=== PATIENT | female | born 1960 | race Caucasian/White ===

== ENCOUNTER 2018-11-18 11:31 | Inpatient (IN) ==
[2018-11-18] MEDS ORDERED: ASPIRIN PO ONE (12:35)
--- NOTE | 2018-11-18 12:39 | EKG Report ---
Test Performed on : 11/18/2018 11:41:02 AM Test Reason : CP Blood Pressure : / mmHG Vent. Rate : 074 BPM Atrial Rate : 074 BPM P-R Int : 148 ms QRS Dur : 100 ms QT Int : 404 ms P-R-T Axes : -02 097 011 degrees QTc Int : 448 ms Normal sinus rhythm. Incomplete right bundle branch block Right ventricular hypertrophy with repolarization abnormality Nonspecific T wave abnormality Abnormal ECG When compared with ECG of 04-NOV-2008 15:22, fusion complexes are no longer present Vent. rate has decreased BY 41 BPM Incomplete right bundle branch block is now present Unconfirmed Result
[2018-11-18 12:47] LABS: BASO# 0.01 X1000 (0.0-0.2); BASO% 0.1 % (0.0-0.8); EOS# 0.09 X1000 (0.0-0.7); EOS% 0.9 % (0.0-10.0); HEMATOCRIT 41.7 % (37.0-47.0); HEMOGLOBIN 14.2 g/dL (12.0-16.0); LYMPH# 2.84 X1000 (1.2-3.4); LYMPH% 29.3 % (20.5-51.1); MCH 33.3 PG (27-31); MCHC 34.1 g/dL (33-37); MCV 97.9 FL (81-99); MONO# 0.47 X1000 (0.11-0.59); MONO% 4.8 % (1.7-9.3); MPV 11.6 FL (7.4-10.4); NEUT# 6.29 X1000 (1.4-6.5); NEUT% 64.9 % (42.2-75.2); PLT 133 X1000 (130-400); RBC 4.26 XMIL (4.2-5.4)
--- NOTE | 2018-11-18 12:54 | Diag Imaging Result Doc PS360 ---
EXAM: CHEST-2 VIEWS 11/18/2018 HISTORY: CP TECHNIQUE: PA and lateral chest COMMENT: There are no previous studies. There is a hiatal hernia. The heart size and pulmonary vascularity are within normal limits. IMPRESSION: Hiatal hernia. Electronically signed by Fabiano Jones 11/18/2018 12:52 PM
[2018-11-18 13:07] LABS: AGAP 9; ALB/GLOB RATIO 1.5; ALBUMIN 4.1 g/dL (3.5-5.0); ALKALINE PHOSPHATASE 122 U/L (32-104); BUN 7 mg/dL (8-22); CALCIUM 9.5 mg/dL (8.8-10.2); CHLORIDE 102 mmol/L (98-107); CK PROFILE 40 U/L (24-173); COSMO 274; CREATININE 0.9 mg/dL (0.5-0.9); ESTIMATED GFR > 60; GLUCOSE 102 mg/dL (70-104); GOT 10 U/L (10-30); GPT 6 U/L (10-36); SODIUM 138 mmol/L (136-145); TCO2 27 mmol/L (25-35); TOTAL BILIRUBIN 0.52 mg/dL (0.20-1.00); TOTAL PROTEIN 6.9 g/dL (6.3-8.3)
[2018-11-18 13:14] LABS: INR 0.97
--- NOTE | 2018-11-18 15:11 | EKG Report ---
Test Performed on : 11/18/2018 2:57:33 PM Test Reason : chest pain Blood Pressure : / mmHG Vent. Rate : 068 BPM Atrial Rate : 068 BPM P-R Int : 158 ms QRS Dur : 098 ms QT Int : 432 ms P-R-T Axes : -07 090 007 degrees QTc Int : 459 ms Normal sinus rhythm. Incomplete right bundle branch block Right ventricular hypertrophy with repolarization abnormality Nonspecific T wave abnormality Abnormal ECG When compared with ECG of 18-NOV-2018 11:41, (Unconfirmed) No significant change was found Unconfirmed Result
[2018-11-18] MEDS ORDERED: NITROGLYCERIN SL PRN (15:52)
[2018-11-18] MEDS ORDERED: MORPHINE IV PRN (15:52)
[2018-11-18] MEDS ORDERED: TYLENOL PO PRN ×2 (15:52→17:01)
[2018-11-18] MEDS ORDERED: SODIUM CHLORIDE 0.9% INJ SCH (16:00)
--- NOTE | 2018-11-18 16:44 | EKG Report ---
Test Performed on : 11/18/2018 3:12:17 PM Test Reason : ED. No order in [place] Blood Pressure : / mmHG Vent. Rate : 126 BPM Atrial Rate : 126 BPM P-R Int : 122 ms QRS Dur : 066 ms QT Int : 278 ms P-R-T Axes : 061 081 053 degrees QTc Int : 402 ms Sinus tachycardia. Possible Left atrial enlargement Borderline ECG When compared with ECG of 18-NOV-2018 14:57, (Unconfirmed) Vent. rate has increased BY 58 BPM Incomplete right bundle branch block is no longer present Unconfirmed Result
--- NOTE | 2018-11-18 16:51 | Diag Imaging Result Doc PS360 ---
EXAM: ABDOMEN FLAT/UPRIGHT HISTORY: Abdominal pain TECHNIQUE: Flat and upright, three views COMPARISON: None. FINDINGS: No free air beneath the diaphragm. The gallbladder has been removed. There is stool throughout the colon. No bowel obstruction. There are surgical clips and sutures in the right lower quadrant consistent with appendectomy. No abnormal abdominal calcifications. There are several pelvic phleboliths. Moderate degenerative spine changes. Mild scoliosis. IMPRESSION: Constipation Electronically signed by Anil Regan 11/18/2018 4:49 PM
[2018-11-18] MEDS ORDERED: NS 1,000 ML IV SCH (17:01)
--- NOTE | 2018-11-18 17:12 | HISTORY AND PHYSICAL ---
CHIEF COMPLAINTS: Abdominal pain and chest pain of 4 hours duration. HISTORY OF PRESENT ILLNESS: Ms. Salas is a 57-year-old lady with past medical history of heart surgery, pneumonia, anxiety, asthma, paroxysmal atrial fibrillation, who comes in with chief complaint of chest pain which started at about 12 p.m. The patient is a really poor historian, and I could not get details of her prior medical history. However, she states that yesterday she started developing nausea and had 2 episodes of vomiting, which had brownish material in it. She could not tell me for sure whether it had any blood in it. She also has abdominal bloating. She could not eat anything. Today morning when she was in her bed, she suddenly started experiencing sharp pain in the epigastric/lower sternal region, which did not get better. She thought it may get worse if she would do physical exertion, so she decided to come to the hospital. She states prior she has had 4 heart surgeries in [place] in the past but does not know the details of them. She states initially she did require shock for correcting of normal heart rhythm, so I suspect paroxysmal atrial fibrillation. She states she is currently not on any blood thinners, but previously was on warfarin. In the emergency room, her vitals were largely unremarkable, except documented episodes of low saturations, though patient was not in any acute distress, and at the time of my evaluation, her SpO2 too is not correctly detectable. At the time of my evaluation, she states her chest pain is still there, about 9/10, but she is not in any acute distress, and her abdominal pain is bothering her more. She states occasionally she coughs and brings up whitish sputum. She denies known history of any DVT or PE. OTHER PAST MEDICAL HISTORY: Documents have been requested from [facility] as well as her regular doctor's office. MEDICATION: List pending reconciliation; however patient states, she takes Klonopin for anxiety, she takes albuterol for asthma, and she takes Dorris for arthritis. OTHER PAST MEDICAL HISTORY: Paroxysmal atrial fibrillation, hypothyroidism, hyperlipidemia, chronic pain, anxiety, asthma, nephrolithiasis. PAST SURGICAL HISTORY: Cholecystectomy, hysterectomy, appendectomy, nephrolithiasis removal surgery. FAMILY HISTORY: Positive for mother having diabetes, essential hypertension, and throat cancer. Positive for father having myocardial infarction at the age of 30 years. SOCIAL HISTORY: Tobacco smoking since she was 10-15 years old, about 1 pack a day. She has recently been started on Chantix and at currently smoking 3 cigarettes a day. No alcohol or recreational drug use. REVIEW OF SYSTEMS: Positive for headache. Positive for right-sided knee joint pain. Positive for epigastric discomfort. Positive for headache. Negative for visual disturbance. Negative for shortness of breath or palpitation. PHYSICAL EXAMINATION: VITALS: Currently temperature of 97.8 degrees, pulse of 75, respiratory rate 18, blood pressure 108/70, saturating 96% on room air. GENERAL: Does not appear in any acute distress. Oral cavity is moist. LUNGS: Air entry bilaterally equal. No wheeze, rhonchi, crackles. CARDIOVASCULAR: S1, S2 normal. No murmur, rub, or gallop. CHEST: She does have some localized chest tenderness. ABDOMEN: Soft. Epigastric tenderness. Active bowel sounds. No rebound or rigidity. EXTREMITIES: No lower extremity edema. She does appear to have right-sided mild effusion. She has bilateral lower extremity vitiligo. NEUROLOGICAL: She is alert and oriented x3. LABORATORY DATA: CBC: Hemoglobin of 14.2, platelet of 133,000. INR of 0.9. Unremarkable BUN, creatinine. Troponins are negative MICROBIOLOGY: No data. IMAGING: Chest x-ray did not have acute cardiopulmonary process. DIAGNOSTIC STUDIES: Electrocardiogram had normal sinus rhythm, incomplete right bundle branch block, right ventricular hypertrophy with repolarization abnormalities. We do not have prior history. ASSESSMENT AND PLAN: 1. Acute abdominal pain in the epigastric region. 2. Atypical chest pain. 3. Prior history of abnormal heart rhythm. 4. History of essential hypertension and heart surgery. 5. Episodes of vomiting and abdominal discomfort, likely in the setting of acute gastritis. 4. Questionable history of CAD. PLAN: I will start patient on intravenous fluids. We will give her antiemetic as needed. I will give her intravenous pantoprazole. I will follow up with serial troponins, lipid panel, hemoglobin A1c. I will await medication reconciliation. We will keep her on aspirin. I will also follow up with abdominal x-ray. She received 1time aspirin in the emergency room. I will monitor her under observation status. Plan of care discussed with the patient, and her questions have been answered. Medical records and medication reconciliation have been requested. cc: Danyel Wick MD MTDD
--- NOTE | 2018-11-18 17:48 | PROVIDER DOCUMENTATION ---
This chart was entered by Anjana Walter Scribe, acting as scribe for Nallely Soto MD. HPI-Chest Pain - General Chief Complaint: Chest Pain Stated Complaint: VOMITING Time Seen by Provider: 11/18/18 12:35 Source: patient Allergies/Adverse Reactions: Patient Allergies Allergy/AdvReac Type Severity Reaction Status Date / Time No Known Allergies Allergy Verified 11/18/18 12:32 - History of Present Illness-CP Nature of Presenting Problem: 57 yowf presents to the ed with multiple complaints with onset at midnight. pt sts has chest pain, left knee pain, WALKER, left ear pain, left arm/hand tingling, epigastric pain, nausea, vomiting and back. pt on exam when asked what hurts the most she sts "look at my knee its all swollen" pt sts has had multiple MN and may have cardiac stents. pt is poor historian and on exam looks to be in no distress Location: reports: substernal Chest Pain Radiation: reports: back Quality of Pain: reports: aching Severity in ED: mild Onset/Duration: this morning (1200am) Timing: still present, intermittent Context/Activities at Onset: reports: sleep Modifying Factors: improves with: nothing Associated Symptoms: reports: abdominal pain, back pain, headache, nausea, vomiting Nitro Today/Relief: no nitro taken today Aspirin Treatment Today: 325 mg x 1, provided by ED Prior Chest Pain/Cardiac Workup: reports: heart attack, stress test Similar Symptoms Previously?: Yes Recently Seen Here or By Another Healthcare Provider: No Review of Systems - Adult - REVIEW OF SYSTEMS - ADULT Constitutional: denies: chills, fever Eyes: reports: no symptoms reported Ears, Nose, Mouth & Throat: reports: see HPI, ear pain (left) Cardiovascular: reports: see HPI, chest pain. denies: palpitations, syncope Respiratory: denies: shortness of breath, wheezing Gastrointestinal: reports: see HPI, abdominal pain, hematemesis, nausea, vomiting Genitourinary: reports: no symptoms reported Musculoskeletal: reports: see HPI, back pain, joint pain (left knee), joint swelling (left knee) Integumentary: reports: no symptoms reported Neurological: reports: see HPI, paresthesia (left hand and arm). denies: dizziness/vertigo, headache/migraines Psychiatric: reports: no symptoms reported Endocrine: reports: no symptoms reported Hematologic/Lymphatic: reports: no symptoms reported Allergic/Immunologic: reports: no symptoms reported All Other Systems: Reviewed and Negative Past History - Adult - PAST MEDICAL HISTORY-ADULT Review of Records: reports: Old Records Reviewed, Nursing Assessment Review, Medications Reviewed, Social history reviewed & non-contributory. Major Childhood Illnesses: reports: denies history Cardiovascular: reports: A-Fib, HTN, hyperlipidemia, MN Respiratory: reports: asthma Gastrointestinal: reports: GERD Obstetrical/Gynecological: reports: denies history Genitourinary: reports: denies history Musculoskeletal: reports: denies history Neurological: reports: denies history Psychiatric: reports: denies history Endocrine/Immune: reports: thyroid disorder Other Conditions: reports: denies history - PRIOR SURGERIES/PROCEDURES Surgical/Procedure History: reports: appendectomy, cholecystectomy, cardiac stent, joint replacement - IMMUNIZATION STATUS Childhood Immunizations: See Nurse Assessment Flu Vaccine: See Nurse Assessment - FAMILY HISTORY Family History: reviewed, not pertinent - SOCIAL HISTORY Smoking: cigarettes, less than 1 pack/day Provider spent 3-5 mins advising pt. on dangers of tobacco.: Discussed manners to quit use, and f/u contacts for add'l counseling. Substance Use: denies Alcohol Use Frequency: never Living Situation: family Physical Exam-General - PHYSICAL EXAM-ADULT Initial Vital Signs Reviewed: Yes - CONSTITUTIONAL General Appearance: appears well, alert, no apparent distress (pt sts has many complaints but on exam pt is in no distress.) - EYES Eyes: PERRL/EOMI, pink conjunctivae - HEAD, EARS, NOSE, MOUTH & THROAT HENMT: moist mucous membranes, other (no teeth) - NECK Neck: non-tender, full range of motion, supple, normal inspection - RESPIRATORY Respiratory: chest non-tender, lungs clear, normal breath sounds - CARDIOVASCULAR Cardiovascular: normal peripheral pulses, regular rate, rhythm - CHEST (BREASTS) Chest/Breast: deferred - GASTROINTESTINAL (ABDOMEN) Abdominal Exam: normal bowel sounds, non tender, soft - LYMPHATIC Lymphatic: no adenopathy - MUSCULOSKELETAL Back Exam: normal inspection, no CVA tenderness, no vertebral tenderness Extremity: normal range of motion, normal gait, normal inspection, no pedal edema, no calf tenderness, normal capillary refill, pelvis stable - SKIN Integumentary: normal color, normal turgor, warm/dry - NEUROLOGIC Neurologic: grossly normal - PSYCHIATRIC Psych/Mental Status: normal mood/affect, normal thought content, normal thought process, oriented x 3 - HEART Score HEART Score: History: Slightly Suspicious HEART Score: ECG: Non-Specific Repolarization Disturbance/LBBB/PM HEART Score: Age: 45-65 Years HEART Score: Risk Factors for Atherosclerotic Disease: > or = 3 Risk Factors or History of Atherosclerotic Disease HEART Score: Troponin: < or = Normal Limit Total HEART Score:: 4 Progress - PLAN OF CARE/RESULTS Progress/Plan/Lab Results: Vital Signs - 8 hr 11/18/18 11:33 11/18/18 12:11 11/18/18 12:12 Temperature 97.8 F Pulse Rate 88 69 70 Respiratory Rate 20 19 20 Blood Pressure 112/84 115/78 O2 Sat by Pulse Oximetry 98 99 98 11/18/18 12:20 11/18/18 12:30 11/18/18 12:40 Temperature Pulse Rate 68 71 76 Respiratory Rate 18 18 10 L Blood Pressure O2 Sat by Pulse Oximetry 97 94 L 95 11/18/18 12:53 11/18/18 13:00 11/18/18 13:10 Temperature Pulse Rate 66 81 72 Respiratory Rate 27 H 12 18 Blood Pressure O2 Sat by Pulse Oximetry 98 95 92 L 11/18/18 13:20 11/18/18 13:30 11/18/18 13:40 Temperature Pulse Rate 72 74 78 Respiratory Rate 20 15 10 L Blood Pressure O2 Sat by Pulse Oximetry 87 L 95 82 L 11/18/18 13:50 11/18/18 14:00 11/18/18 14:05 Temperature Pulse Rate 72 78 75 Respiratory Rate 15 18 25 H Blood Pressure 92/72 O2 Sat by Pulse Oximetry 86 L 92 L 96 11/18/18 14:46 11/18/18 16:31 11/18/18 16:34 Temperature Pulse Rate Respiratory Rate Blood Pressure 92/72 108/73 O2 Sat by Pulse Oximetry 93 L 11/18/18 16:55 Temperature Pulse Rate Respiratory Rate Blood Pressure O2 Sat by Pulse Oximetry 94 L Laboratory Results - last 24 hr 11/18/18 11/18/18 11/18/18 11:53 11:53 11:53 WBC 9.70 RBC 4.26 Hgb 14.2 Hct 41.7 MCV 97.9 MCH 33.3 H MCHC 34.1 RDW Std Deviation 13.0 Plt Count 133 MPV 11.6 H Immature Gran % (Auto) 0.0 Neut % (Auto) 64.9 Lymph % (Auto) 29.3 Hitchcock % (Auto) 4.8 Eos % (Auto) 0.9 Baso % (Auto) 0.1 Immature Gran # (Auto) 0.00 Neut # (Auto) 6.29 Lymph # (Auto) 2.84 Hitchcock # (Auto) 0.47 Eos # (Auto) 0.09 Baso # (Auto) 0.01 PT INR PTT (Actin FS) 29.6 Sodium 138 Potassium 4.0 Chloride 102 Carbon Dioxide 27 Anion Gap 9 BUN 7 L Creatinine 0.9 Estimated GFR/1.73 m2 > 60 BUN/Creatinine Ratio 8 Glucose 102 Calculated Osmolality 274 Calcium 9.5 Total Bilirubin 0.52 AST 10 ALT 6 L Alkaline Phosphatase 122 H Creatine Kinase 40 Troponin T [id number]-G-Iqhitcosaqk Pept Total Protein 6.9 Albumin 4.1 Globulin 2.8 Albumin/Globulin Ratio 1.5 11/18/18 11/18/18 11/18/18 11:53 11:53 11:53 WBC RBC Hgb Hct MCV MCH MCHC RDW Std Deviation Plt Count MPV Immature Gran % (Auto) Neut % (Auto) Lymph % (Auto) Hitchcock % (Auto) Eos % (Auto) Baso % (Auto) Immature Gran # (Auto) Neut # (Auto) Lymph # (Auto) Hitchcock # (Auto) Eos # (Auto) Baso # (Auto) PT 13.0 INR 0.97 PTT (Actin FS) Sodium Potassium Chloride Carbon Dioxide Anion Gap BUN Creatinine Estimated GFR/1.73 m2 BUN/Creatinine Ratio Glucose Calculated Osmolality Calcium Total Bilirubin AST ALT Alkaline Phosphatase Creatine Kinase Troponin T < 0.010 Fxk-Y-Gqnzhtzdxag Pept 160 Total Protein Albumin Globulin Albumin/Globulin Ratio 11/18/18 11/18/18 14:08 14:08 WBC RBC Hgb Hct MCV MCH MCHC RDW Std Deviation Plt Count MPV Immature Gran % (Auto) Neut % (Auto) Lymph % (Auto) Hitchcock % (Auto) Eos % (Auto) Baso % (Auto) Immature Gran # (Auto) Neut # (Auto) Lymph # (Auto) Hitchcock # (Auto) Eos # (Auto) Baso # (Auto) PT INR PTT (Actin FS) Sodium Potassium Chloride Carbon Dioxide Anion Gap BUN Creatinine Estimated GFR/1.73 m2 BUN/Creatinine Ratio Glucose Calculated Osmolality Calcium Total Bilirubin AST ALT Alkaline Phosphatase Creatine Kinase 38 Troponin T < 0.010 Zxy-K-Fnyfqzeemsq Pept Total Protein Albumin Globulin Albumin/Globulin Ratio Orders Category Date Time Status Admit - [facility] Routine AdmDCTranf 11/18/18 15:52 Active Cardiac Monitoring DIRECTED Care 11/18/18 12:35 Active Medical Records [Old records/chart to unit] .From other Care 11/18/18 17:01 Active facility Notify MD if DIRECTED Care 11/18/18 17:01 Active Oxygen Therapy- ED Nursing DIRECTED Care 11/18/18 12:35 Active Saline Loc DIRECTED Care 11/18/18 17:01 Active Saline Loc NOW Care 11/18/18 12:35 Active Update & Confirm Home Medicati ROUTINE Care 11/18/18 15:54 Active Vital Signs Order Q 4-HR ASSESS Care 11/18/18 17:01 Active Z-Document. for Tele Applied ORDERED Care 11/18/18 17:01 Active Full Liquid Diet Diet 11/18/18 16:58 Active Heart Healthy Diet Diet 11/18/18 15:53 Completed CHEST-2 VIEWS [RAD] Stat Exams 11/18/18 12:35 Completed acute [ABDOMEN FLAT/UPRIGHT] [RAD] Routine Exams 11/18/18 16:34 Completed A1C [A1C HGB W EST AVG GLUCOSE] [CHEM] Routine Lab 11/19/18 06:00 Uncollected CBC WITH ELECTRONIC DIFF [HEME] Routine Lab 11/19/18 06:00 Uncollected CBC WITH ELECTRONIC DIFF [HEME] Stat Lab 11/18/18 11:53 Completed CK PROFILE [SP CHEM] Stat Lab 11/18/18 11:53 Completed CK PROFILE [SP CHEM] Stat Lab 11/18/18 14:08 Completed CK TOTAL [CHEM] Lab 11/18/18 17:29 Received CK TOTAL [CHEM] Lab 11/19/18 00:00 Uncollected CK TOTAL [CHEM] Lab 11/19/18 08:00 Uncollected COMPREHENSIVE METABOLIC PANEL [CHEM] Routine Lab 11/19/18 06:00 Uncollected COMPREHENSIVE METABOLIC PANEL [CHEM] Stat Lab 11/18/18 11:53 Completed LIPID PROFILE W/CALC LDL [LIPIDS] Routine Lab 11/19/18 06:00 Ordered LIPID PROFILE W/DIR LDL [LIPIDS] Routine Lab 11/19/18 06:00 Ordered MAGNESIUM [CHEM] Routine Lab 11/19/18 06:00 Ordered PRO B-NATRIURETIC PEPTIDE Stat Lab 11/18/18 11:53 Completed PROTIME WITH INR [COAG] Stat Lab 11/18/18 11:53 Completed PTT [COAG] Stat Lab 11/18/18 11:53 Completed TROPONIN T Lab 11/18/18 17:29 Received TROPONIN T Lab 11/19/18 00:00 Uncollected TROPONIN T Lab 11/19/18 08:00 Uncollected TROPONIN T Stat Lab 11/18/18 11:53 Completed TROPONIN T Stat Lab 11/18/18 14:08 Completed 0.9% Sodium Chloride Inj [Ns] 1,000 ml Med 11/18/18 17:01 Active IV 75 mls/hr Acetaminophen [Tylenol] Med 11/18/18 15:52 Active 650 mg PO Q6H PRN PRN Acetaminophen [Tylenol] Med 11/18/18 17:01 Active 650 mg PO Q6H PRN PRN Aspirin Med 11/18/18 12:35 Discontinued 325 mg PO NOW ONE Aspirin EC Med 11/19/18 09:00 Active 81 mg PO DAILY Bisacodyl [Dulcolax] Med 11/18/18 17:00 Active 10 mg IN BID Enoxaparin [Lovenox] Med 11/19/18 09:00 Active 40 mg SUBQ Q24H Morphine Med 11/18/18 16:38 Active 0.5 mg IV Q6H PRN PRN Morphine Med 11/18/18 15:52 Discontinued 2 - 4 mg IV Q5M PRN PRN Nitroglycerin Sl [Nitroglycerin] Med 11/18/18 15:52 Active 0.4 mg SL Q5M PRN PRN Ondansetron [Zofran] Med 11/18/18 15:52 Active 4 mg IV Q4H PRN PRN Pantoprazole [Protonix] Med 11/18/18 16:00 Active 40 mg IV Q24H Sodium Chloride 0.9% Med 11/18/18 16:00 Active 10 ml INJ DIRECTED CP/SOB/Palp >45 yrs of Age Stat Oth 11/18/18 12:35 Ordered Oxygen Device Routine Oth 11/18/18 17:01 Completed Telemetry [OM.EQ] Routine Oth 11/18/18 17:01 Active EKG [EKG] ONCE Ther 11/18/18 12:35 Draft EKG [EKG] Routine Ther 11/19/18 07:00 Ordered EKG [EKG] Stat Ther 11/18/18 13:49 Draft EKG [EKG] Stat Ther 11/18/18 13:49 Draft Echo Spec/Color Doppler Routine Ther 11/18/18 17:01 Ordered Transfer/Admit Order [TRANSFER] Routine Transfer 11/18/18 15:47 Completed Result Diagrams: 11/18/18 11:53 11/18/18 11:53 - REASSESSMENT Reassessment #1 Time Reassessed: 12:57 (pt is in no distress) Status: unchanged - EKG 1 Time of EKG reading by physician:: 11:41 EKG Read and Signed by:: Nallely Soto EKG Interpretation (*Must complete 3 of following elements*): Abnormal Rate: 74 Rhythm: nsr Atlas: normal QRS: RBB (incomplete), other (right ventricular hypertrphy with repolarization abnormality) IN Interval: normal ST Wave: normal Comments: nonspecific T wave abnormality 2 Time of EKG reading by physician:: 14:57 EKG Read and Signed by:: Nallely Soto EKG Interpretation (*Must complete 3 of following elements*): Abnormal Rate: 68 Rhythm: nsr Atlas: normal QRS: RBB (incomplete), other (right ventricular hypertrophy w/ repolarization abnormality) IN Interval: normal ST Wave: normal Comments: nonspecific t wave abnormality - XRAY 1 XRAY: Bilateral XRAY Study: Chest Impression: See EMR Report (EXAM: CHEST-2 VIEWS 11/18/2018 HISTORY: CP TE CHNIQUE: PA and lateral chest COMMENT: There are no previous studies. There is a hiatal hernia. The heart size and pulmonary vascularity are within normal limits. IMPRESSION: Hiatal hernia. Electronically signed by Fabiano Jones 11/18/2018 12:52 PM 11/18/18 1252 Interpreting Physician: Fabiano Jones MD Dictated Date/Time: 11/18/18 1251 cc: Nallely Soto MD; MIKE,CORKY Schreiber) - CONSULTS/PCP/HOSPITALIST Notification #1 *Consult/PCP/Hospitalist*: hospitalist Time Discussed: 15:39 Consult Disposition: Admit Departure - Departure Date of Disposition Decision: 11/18/18 Time of Disposition Decision: 15:41 DIAGNOSIS: Nonspecific chest pain, Tobacco use disorder Disposition: ADMITTED INPATIENT 09 Certified Medical Emergency: Emergent Condition: Stable - Critical Care Note This patient required my direct & personal management of CC.: No Attestation - Physician/ JANI Attestation Patient care was provided by Advanced Practice Provider:: No The physician spent face to face time with patient:: Yes Advanced Practice Provider documentation review:: Supervising physician onsite and consulted in the evaluation and care of this patient. The physician did have a face to face encounter with the patient. This chart was documented by the indicated scribe, (Anjana Walter Scribe) and accurately reflects the services I performed and decisions made by me, Nallely Soto MD, as attested by the provider's signature.
[2018-11-18] MEDS: PROTONIX IV SCH (17:49)
[2018-11-18] MEDS: DULCOLAX PR SCH ×2 (17:49→23:12)
[2018-11-18] MEDS: MORPHINE IV PRN (18:46)
[2018-11-18] MEDS: ZOFRAN IV PRN (21:58)
[2018-11-19 07:28] LABS: EOS# 0.12 X1000 (0.0-0.7); EOS% 1.7 % (0.0-10.0); HEMOGLOBIN 12.6 g/dL (12.0-16.0); LYMPH# 2.29 X1000 (1.2-3.4); LYMPH% 32.1 % (20.5-51.1); MCH 33.5 PG (27-31); MCHC 33.2 g/dL (33-37); MCV 101.1 FL (81-99); MONO# 0.56 X1000 (0.11-0.59); MONO% 7.9 % (1.7-9.3); MPV 11.2 FL (7.4-10.4); NEUT# 4.16 X1000 (1.4-6.5); NEUT% 58.3 % (42.2-75.2); PLT 122 X1000 (130-400); RBC 3.76 XMIL (4.2-5.4); RDW 13.1 % (11.5-14.5); WBC 7.13 X1000 (4.8-10.8)
--- NOTE | 2018-11-19 07:42 | EKG Report ---
Test Performed on : 11/19/2018 07:15:34 AM Test Reason : chest pain Blood Pressure : / mmHG Vent. Rate : 059 BPM Atrial Rate : 059 BPM P-R Int : 164 ms QRS Dur : 084 ms QT Int : 442 ms P-R-T Axes : 005 081 032 degrees QTc Int : 437 ms Sinus bradycardia. Nonspecific T wave abnormality Abnormal ECG When compared with ECG of 18-NOV-2018 15:12, (Unconfirmed) Vent. rate has decreased BY [address] elevation now present in Inferior leads Confirmed by Flash Gould MD ([id number]) on 11/19/2018 4:28:51 PM
[2018-11-19 07:56] LABS: ALB/GLOB RATIO 1.1; ALBUMIN 3.5 g/dL (3.5-5.0); CALCIUM 9.5 mg/dL (8.8-10.2); POTASSIUM 4.1 mmol/L (3.5-5.1); TOTAL BILIRUBIN 0.65 mg/dL (0.20-1.00); TOTAL PROTEIN 6.6 g/dL (6.3-8.3)
[2018-11-19] MEDS: MORPHINE IV PRN ×3 (07:57→20:30)
[2018-11-19] MEDS: LOVENOX SUBQ SCH ×2 (07:58→09:42)
[2018-11-19] MEDS: ASPIRIN EC PO SCH ×2 (07:58→09:41)
[2018-11-19] MEDS: DULCOLAX PR SCH ×3 (07:58→20:23)
[2018-11-19 07:59] LABS: HEMOGLOBIN A1C 5.3 % (4.8-6.0)
[2018-11-19] MEDS ORDERED: TOPROL XL PO SCH ×2 (12:00→13:52)
[2018-11-19] MEDS: PROTONIX IV SCH (15:32)
[2018-11-19] MEDS: NEURONTIN PO SCH ×2 (15:32→20:24)
[2018-11-19] MEDS: VENTOLIN HFA INH SCH ×2 (16:20→21:14)
--- NOTE | 2018-11-19 18:09 | PROGRESS NOTE ---
DATE: 11/19/2018 INTERVAL HISTORY: No acute events overnight. The patient has been feeling well. She states she has not had any more nausea or vomiting. She had a bowel movement. Abdominal x-ray had suggested constipation. Discharge summary from [facility] suggested her coronary angiography was without any significant coronary artery disease in 08/2018. Documents from [facility] are still pending. SUBJECTIVE: The patient is feeling better. Her abdominal distention is better. She states she is still having knee pain, and we discussed about osteoarthritis and outpatient management. The patient's son is at bedside. OBJECTIVE: Vital signs: Temperature 97.6 degrees, pulse 59, respiratory rate 16, blood pressure 114/64. She is saturating 100% on room air. On physical examination she does not appear in any acute distress. Oral cavity is moist. Air entry bilaterally equal. No wheeze, rhonchi, crackles. S1, S2 normal. No murmur or gallop. Abdomen is soft, nontender. Active bowel sounds. Tympanic to percussion. No lower extremity edema. She is alert and oriented x3. LABORATORY DATA: Suggestive of normal hemoglobin, normal platelet count. Acceptable range of blood glucose. Her troponins were negative. Lipid panel had LDL of 78. No new microbiological data. DIAGNOSTIC DATA: Abdominal x-ray yesterday had constipation. ASSESSMENT AND PLAN: 1. Acute abdominal pain in the epigastric region with vomiting, likely acute viral gastritis, now improving. Continue intravenous Zofran as needed for vomiting and intravenous Protonix. Her electrocardiogram and troponins were not suggestive of acute coronary syndrome, and her coronary angiography was unremarkable in 08/2018, so her chest pain is actually epigastric discomfort from acute gastritis. 2. Prior history of abnormal heart rhythm. There is no documentation of paroxysmal atrial fibrillation. According to previous discharge summary from [facility], she is supposed to be on metoprolol, which I would resume with holding parameters. 3. Essential hypertension and history of heart surgery. Additional records from [facility] are pending. I will continue her on aspirin. 4. Others: Continue simvastatin for hyperlipidemia; albuterol sulfate inhaler for active tobacco and likely asthma and chronic obstructive pulmonary disease; enoxaparin for constipation; levothyroxine for hypothyroidism. 5. Disposition: I will monitor the patient for 24 hours to see how she does on a regular diet. Accordingly, I will consider discharge in the next 24 to 48 hours. Plan of care discussed with her. Her questions have been answered. cc: Danyel Wick MD
--- NOTE | 2018-11-19 19:07 | ECHO REPORT ---
ORDER DATE: 11/18/2018 INDICATION: Coronary heart disease, chest pain, atrial fibrillation. M-MODE MEASUREMENTS: Left ventricle end diastole: 5.5. Left ventricle end systole: 3.9. Posterior wall: 1.0. Interventricular septum: 1.0. Left atrium: 3.4. Aortic diameter: 3.4. SUMMARY OF 2-DIMENSIONAL IMAGIN. Left ventricular function is normal. Ejection fraction is 60%. There is no wall motion abnormality. 2. The atria appear to be normal. 3. The aortic valve is normal. Color flow mapping unremarkable. 4. The mitral valve is normal. Color flow mapping unremarkable 5. Pulsed wave Doppler of mitral inflow shows normal pattern 6. Tissue Doppler of septal and lateral mitral annulus averages 10 cm. 7. Pulmonary venous flow is normal. 8. The pulmonic valve looks normal. Color flow mapping unremarkable. 9. The tricuspid valve shows no significant regurgitation. Pulmonary pressure estimated at 29 to 34 mmHg. There is no pericardial effusion, no mass, and no thrombus. 10.The right-sided chambers appear to be normal. 11, Agitated saline injected. no evidence of PFO. SUMMARY: This study shows: 1. Normal left ventricular systolic function. 2. Normal diastolic function. 3. No evidence of any significant valvular abnormality. 4. Pulmonary pressure 29 mmHg. Clinical correlation recommended. cc: MD Danyel Bermudez MD [facility]
[2018-11-19] MEDS ORDERED: ZOCOR PO SCH (21:00)
[2018-11-20] MEDS: MORPHINE IV PRN ×2 (02:15→10:31)
[2018-11-20] MEDS: VENTOLIN HFA INH SCH ×2 (03:42→09:59)
[2018-11-20] MEDS ORDERED: SYNTHROID PO SCH (07:00)
[2018-11-20 07:43] VITALS: BP 94/52
[2018-11-20] MEDS: ZOFRAN IV PRN (10:32)
[2018-11-20] MEDS: NEURONTIN PO SCH (10:34)
[2018-11-20] MEDS: LOVENOX SUBQ SCH (10:35)
[2018-11-20] MEDS: ASPIRIN EC PO SCH (10:35)
[2018-11-20] MEDS: DULCOLAX PR SCH (10:35)
[2018-11-20] MEDS ORDERED: PNEUMOVAX 23 IM ONE (11:15)
--- NOTE | 2018-11-20 18:44 | DISCHARGE SUMMARY ---
ADMISSION DATE: 11/18/2018 DISCHARGE DATE: 11/20/2018 DISCHARGE DISPOSITION: Home. DISCHARGE CONDITION: Hemodynamically stable. She is tolerating regular diet well. No nausea, vomiting, or epigastric discomfort. DISCHARGE DIAGNOSES: 1. Acute likely viral gastritis. 2. Epigastric abdominal pain. 3. Anxiety. 4. Bilateral knee osteoarthritis. 5. Atypical chest pain. OTHER DIAGNOSES: 1. A reported history of coronary artery disease. However, coronary angiography in [facility] in August 2018 did not have any coronary artery disease or stent. The patient states she had gone to [facility] for getting some heart surgery done, the details of which are unclear. 2. Prior reported history of abnormal heart rhythm. 3. History of anxiety. PHYSICAL EXAMINATION: vital signs At the time of discharge: Temperature 98.3 degrees, pulse 72 respiratory rate 18, blood pressure 90/50, saturating 98% on room air. General: She does not appear in any acute distress. Oral cavity is moist. Lungs: Air entry bilaterally equal. No wheeze, rhonchi, crackles. Cardiovascular: S1, S2 normal. No murmur or gallop. Abdomen: Soft, nontender. No lower extremity edema. SIGNIFICANT LABORATORIES AT THE TIME OF ADMISSION AND DISCHARGE: WBC 7.1, hemoglobin 12.6, platelet count 122,000. BUN 10, creatinine 1. Troponins negative x3. Lipid panel had a cholesterol of 124, LDL of 78. SIGNIFICANT MICROBIOLOGY DURING HOSPITAL ADMISSION: None. SIGNIFICANT IMAGING DURING HOSPITAL ADMISSION: Chest x-ray on admission had a hiatal hernia. Abdomen x-ray had constipation. Echocardiogram had normal left ventricular systolic function, normal diastolic function, no evidence of significant valvular abnormality, pulmonary pressure of 29 mmHg. EKG on admission had right ventricular hypertrophy with repolarization abnormality, incomplete right bundle branch block. DISCHARGE MEDICATIONS: The patient could not provide the list of medication she was taking at home and reconciliation may not be complete. However, according to limited history, she will be discharged on her home clonazepam 1 mg b.i.d. as needed for anxiety, gabapentin 300 mg b.i.d., levothyroxine 175 mcg daily, [place] 7.5 mg 1 tablet t.i.d. as needed for pain, and famotidine 20 mg b.i.d.. HOSPITAL COURSE SUMMARY: Miss Salas is a 57-year-old lady who initially presented to the hospital on 11/18/2018 with chief complaints of lower chest pain and epigastric pain of about 4 hours duration. The patient says she did have prior history of coronary artery disease and had required some heart surgery. However, she was a poor historian and could not provide details of it. Considering her chest pain and epigastric pain symptoms, she was admitted inside the hospital for further management. Her EKG was unremarkable. Echocardiogram was unremarkable. Troponins were negative. Records from [facility] in August 2018 showed she had a coronary angiography which did not have any significant coronary artery disease which essentially ruled out coronary artery disease. It was thought that her epigastric discomfort was due to either viral gastritis or gastritis or gastric reflux in the setting of her hiatal hernia. She also had reported vomiting on presentation that was thought to be related to her stool impaction. She was treated with antacid medication and laxatives following which she started feeling better. At the time of discharge she was provided discharge instructions about following up with her regular doctor. The patient also had bilateral knee pain and she had prior history of knee surgeries, the details of which are unclear, probably ligament or meniscus repair. She was provided contact information for [facility] and was advised to follow up with them outpatient. More than 30 minutes spent in discharging this patient. cc: MD VALENTINA Schofield
== END 2018-11-20 11:43 | disposition home or self-care (01) | DRG 392 ==
LOC: ED 11:31 → 3N 16:59
PROVIDERS: ATTEND Internal Medicine